=== PATIENT | female | born 1935 | race African-American/Black ===

== ENCOUNTER → 2020-11-12 | Outpatient (CLI) | payer BC ==
--- NOTE | 2020-11-12 15:07 | KCIC ---
EXAM: Bilateral knees, 3 views. HISTORY: Pain COMPARISON: MRI dated 06/19/2012 FINDINGS: 3 views of both knees are obtained. There are bilateral knee arthroplasties in expected pos ition. There is no evidence of arthroplasty loosening or periprosthetic fracture. There is enthesopat hy along the patellae. There are bilateral joint loose bodies. There is trace joint effusions. IMPRESSION: 1. 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 2. Bilateral knee joint loose bodies and trace joint effusions. Electronically signed by: Armida Givens MD (11/12/2020 3:05 PM) [id number]
== END ==
LOC: KCIC 14:11
PROVIDERS: ATTEND Family Medicine Sports Medicine
DX: M25.462 Effusion, left knee (principal); M25.461 Effusion, right knee; M76.892 Other specified enthesopathies of left lower limb, excluding foot; M76.891 Other specified enthesopathies of right lower limb, excluding foot; Z96.651 Presence of right artificial knee joint; Z96.652 Presence of left artificial knee joint